=== PATIENT | male | born 1955 | race Caucasian/White ===

== ENCOUNTER 2024-07-24 16:36 | Inpatient (IN) | payer MEDICARE, BC ==
[~2024-07-24] VITALS: Ht 175.3 cm; Wt 82.3 kg
[2024-07-24 17:02] LABS: BASOPHILS % (AUTO) 0.2 % (0-1); EOSINOPHILS % (AUTO) 0.1 % (0-6); HEMATOCRIT 45.3 % (42.0-52.0); HEMOGLOBIN 15.8 g/dl (14.0-17.9); LYMPHOCYTES # (AUTO) 0.7 X10'3 (1.1-4.8); LYMPHOCYTES % (AUTO) 4.7 % (21-51); MEAN CORPUSCULAR HEMOGLOBIN 31.4 PG (27.0-31.0); MEAN CORPUSCULAR HGB CONC 34.9 g/dL (33.0-36.5); MEAN PLATELET VOLUME 7.9 FL (7.4-10.4); MONOCYTES # (AUTO) 1.1 X10'3 (0-0.9); NEUTROPHILS # (AUTO) 13.6 X10'3 (1.8-7.7); PLATELET COUNT 202 X10'3 (140-440); RED BLOOD COUNT 5.04 X10'6 (4.70-6.10); WHITE BLOOD COUNT 15.4 X10'3 (4.5-11.0)
[2024-07-24] MEDS: normal saline 1000ml 1,000 ML IV ONE ×2 (17:11→19:27)
[2024-07-24] MEDS: acetaminophen 325mg tablet PO ONE (17:41)
[2024-07-24] MEDS: nitroGLYCERIN 0.2mg/hour patch TD ONE (17:41)
[2024-07-24 18:16] LABS: APTT 29 SECONDS (22-32); PROTHROMBIN TIME 10.7 SECONDS (9.0-12.0)
[2024-07-24 18:21] LABS: ALANINE AMINOTRANSFERASE 50 U/L (12-78); ALBUMIN 4.1 G/DL (3.4-5.0); ALBUMIN/GLOBULIN RATIO 1.1 (1.1-1.5); ALKALINE PHOSPHATASE 81 IU/L (46-116); ANION GAP 8 (8-16); ASPARTATE AMINO TRANSFERASE 149 U/L (10-37); BILIRUBIN,TOTAL 1.5 MG/DL (0.1-1.0); BLOOD UREA NITROGEN 13 MG/DL (7-18); BUN/CREATININE RATIO 14.4 (10.0-20.0); CALCIUM 9.4 MG/DL (8.5-10.1); CHLORIDE 99 MMOL/L (99-107); GLUCOSE 98 MG/DL (70-104); POTASSIUM 3.8 MMOL/L (3.5-5.1); PRO BRAIN NATRIURETIC PEPTIDE 2396 PG/ML (0-125); SODIUM 136 MMOL/L (135-145); TOTAL CARBON DIOXIDE 29.4 MMOL/L (24-32); TOTAL PROTEIN 7.9 G/DL (6.4-8.2); eCRCL 76 ML/MIN; eGFR 83 ML/MIN
[2024-07-24] MEDS ORDERED: heparin 10,000 units/1 ML INJ IV ONE (18:35)
[2024-07-24] MEDS ORDERED: heparin 10,000 units/1 ML INJ IV PRN (18:50)
[2024-07-24] MEDS: heparin 10,000 units/1 ML INJ IV ONE (19:24)
[2024-07-24] MEDS: heparin 25,000 UNIT/250ml bag 250 ML IV PRN (19:25)
[2024-07-24] MEDS: normal saline 1000ML IV soln IVB ONE (19:26)
[2024-07-24] MEDS: MESSAGE TO NURSING IV ONE (19:27)
[2024-07-24] MEDS ORDERED: fentaNYL/PF 50MCG/1 ML 2ML syringe ONE (19:29)
[2024-07-24] MEDS ORDERED: iohexol 350MG/ML 100ml bottle IV ONE ×2 (19:29→20:31)
[2024-07-24] MEDS ORDERED: midazolam 1 mg/ML 2ml injection ONE ×2 (19:29→20:22)
[2024-07-24] MEDS ORDERED: LIDOcaine 1% (10mg/ml) 2ml vial ONE (19:29)
[2024-07-24] MEDS ORDERED: heparin 1,000unit/ml 10ml vial 10 ML ONE (19:29)
[2024-07-24] MEDS ORDERED: verapamil 2.5 mg/ml inj IV ONE (19:29)
[2024-07-24] MEDS ORDERED: potassium Cl 20 mEq SR tablet PO PRN ×2 (19:30)
[2024-07-24] MEDS ORDERED: morphine 2 MG/ML inj. syringe IV PRN (19:30)
[2024-07-24] MEDS ORDERED: magnesium sulf-water 2g/50mL 50 ML IV PRN (19:30)
[2024-07-24] MEDS ORDERED: magnesium hydroxide 30ml (MOM) UD suspension PO PRN (19:30)
[2024-07-24] MEDS ORDERED: HYDROmorphone inj. 0.5 MG/0.5 ML DISP.SYRIN IV PRN (19:30)
[2024-07-24] MEDS ORDERED: nitroGLYCERIN 500mcg/5mL D5W 5 ML IV ONE (19:30)
[2024-07-24] MEDS ORDERED: magnesium Cl slow-release 64mg tablet PO PRN (19:30)
[2024-07-24] MEDS ORDERED: potassium Cl 40MEQ/1/2NS 520ml 520 ML IV PRN (19:30)
[2024-07-24] MEDS ORDERED: bisacodyl 10mg suppository rectal RC PRN (19:30)
[2024-07-24] MEDS ORDERED: HYDROmorphone/PF 0.2 MG/ML SYRINGE IV PRN (19:30)
[2024-07-24] MEDS ORDERED: magnesium sulf-water 4G/100mL 100 ML IV PRN (19:30)
[2024-07-24] MEDS ORDERED: LIDOcaine 1% 30ml preserv. free vial ONE (19:55)
[2024-07-24] MEDS: K and/or MAG REPLACEMENT MC SCH (20:00)
[2024-07-24] MEDS: docusate sod 100mg capsule PO SCH (20:00)
[2024-07-24] MEDS ORDERED: nitroGLYCERIN 500mcg/5mL D5W 10 ML IV ONE (20:13)
[2024-07-24] MEDS ORDERED: aspirin 325mg tablet ONE (20:25)
[2024-07-24] MEDS ORDERED: ticagrelor 90mg tablet ONE (20:25)
[2024-07-24] MEDS ORDERED: atropine 0.1mg/ml 10ml syringe ONE (20:26)
[2024-07-24] MEDS ORDERED: tirofiban 12.5mg in NS 250mL 250 ML IV ONE (20:30)
[2024-07-24 22:00] VITALS: BP 98/55; PULSE 106; RESP 19; TEMP 97.6; O2SAT 93
[2024-07-24 22:15] VITALS: BP 92/52; PULSE 100; RESP 17; O2SAT 94
[2024-07-24] MEDS: HYDROmorphone inj. 0.5 MG/0.5 ML DISP.SYRIN IV PRN (22:25)
[2024-07-24 22:30] VITALS: BP 87/60; PULSE 99; RESP 19; O2SAT 92
[2024-07-24 22:45] VITALS: BP 93/61; PULSE 102; RESP 17; O2SAT 91
[2024-07-24 23:00] VITALS: BP 90/57; PULSE 89; RESP 14; O2SAT 92
[2024-07-24 23:30] VITALS: BP 88/59; PULSE 101; RESP 18; O2SAT 92
[2024-07-25] VITALS: BP 90/56; PULSE 96; RESP 22; O2SAT 94
[2024-07-25 01:00] VITALS: BP 87/59; PULSE 98; RESP 21; O2SAT 93
[2024-07-25] MEDS: morphine 2 MG/ML inj. syringe IV PRN (01:40)
[2024-07-25 02:00] VITALS: BP 84/53; PULSE 100; RESP 21; TEMP 97.4; O2SAT 95
[2024-07-25 05:42] VITALS: RESP 16; O2SAT 95
[2024-07-25] MEDS: ondansetron/PF 4mg/2ml inj IV PRN (05:53)
[2024-07-25 07:03] LABS: BASOPHILS % (AUTO) 0 % (0-1); EOSINOPHILS % (AUTO) 0 % (0-6); HEMATOCRIT 41.1 % (42.0-52.0); LYMPHOCYTES # (AUTO) 0.4 X10'3 (1.1-4.8); MEAN CORPUSCULAR HEMOGLOBIN 31.1 PG (27.0-31.0); MEAN CORPUSCULAR HGB CONC 34.1 g/dL (33.0-36.5); MEAN CORPUSCULAR VOLUME 91.2 FL (78-98); MEAN PLATELET VOLUME 8.5 FL (7.4-10.4); MONOCYTES % (AUTO) 7.9 % (2-12); NEUTROPHILS # (AUTO) 11.1 X10'3 (1.8-7.7); NEUTROPHILS % (AUTO) 89.1 % (42-75); PLATELET COUNT 163 X10'3 (140-440); RED CELL DISTRIBUTION WIDTH 13.3 % (11.5-14.5); WHITE BLOOD COUNT 12.5 X10'3 (4.5-11.0)
[2024-07-25 07:27] LABS: ALANINE AMINOTRANSFERASE 33 U/L (12-78); ALBUMIN/GLOBULIN RATIO 0.8 (1.1-1.5); ALKALINE PHOSPHATASE 66 IU/L (46-116); ANION GAP 12 (8-16); ASPARTATE AMINO TRANSFERASE 105 U/L (10-37); BILIRUBIN,TOTAL 0.9 MG/DL (0.1-1.0); BLOOD UREA NITROGEN 17 MG/DL (7-18); CALCIUM 8.8 MG/DL (8.5-10.1); CHLORIDE 103 MMOL/L (99-107); CHOL/HDL RATIO 1.7 (0.00-4.99); CHOLESTEROL 134 MG/DL (0-200); GLUCOSE 93 MG/DL (70-104); HDL CHOLESTEROL 80 MG/DL (35-60); LDL CHOLESTEROL 34 MG/DL (50-100); MAGNESIUM 1.9 MG/DL (1.5-2.4); POTASSIUM 3.8 MMOL/L (3.5-5.1); SODIUM 138 MMOL/L (135-145); TOTAL CARBON DIOXIDE 23.5 MMOL/L (24-32); TOTAL PROTEIN 6.6 G/DL (6.4-8.2); TRIGLYCERIDES 86 MG/DL (20-135); eCRCL 69 ML/MIN; eGFR 74 ML/MIN
[2024-07-25 08:00] VITALS: RESP 12; O2SAT 94
[2024-07-25] MEDS ORDERED: ticagrelor 90mg tablet PO SCH (08:00)
[2024-07-25] MEDS: aspirin 81mg, enteric-coated 1 TAB TABLET.DR PO SCH (09:21)
[2024-07-25] MEDS: metoprolol tartrate 25mg tablet PO SCH (09:22)
[2024-07-25] MEDS: clopidogrel 300mg tablet PO ONE (09:22)
[2024-07-25] MEDS: apixaban 5mg tablet PO SCH (09:22)
[2024-07-25] MEDS: FLU VACC TS2024-25(6MOS UP)/PF 45 MCG/0.5 ML SYRINGE IMVAC ONE (10:00)
[2024-07-25] MEDS: acetaminophen 325mg tablet PO PRN (14:33)
[2024-07-25] MEDS: mag hydrox/Alum hydrox/simeth 30ml oral suspension PO PRN (14:40)
[2024-07-25] MEDS ORDERED: loperamide 2mg capsule PO PRN (14:40)
[2024-07-25 20:00] VITALS: RESP 15; O2SAT 95
[2024-07-25] MEDS: atorvastatin 20mg tablet PO SCH (20:35)
[2024-07-25] MEDS: Melatonin 3mg tablet PO ONE (20:53)
[2024-07-26 06:00] VITALS: BP 109/65; PULSE 53; RESP 18; TEMP 98.3; O2SAT 96
[2024-07-26 07:12] LABS: BASOPHILS % (AUTO) 0.3 % (0-1); EOSINOPHILS # (AUTO) 0.1 X10'3 (0-0.9); EOSINOPHILS % (AUTO) 1.1 % (0-6); HEMATOCRIT 36.7 % (42.0-52.0); HEMOGLOBIN 12.9 g/dl (14.0-17.9); LYMPHOCYTES # (AUTO) 0.6 X10'3 (1.1-4.8); LYMPHOCYTES % (AUTO) 6.8 % (21-51); MEAN CORPUSCULAR HEMOGLOBIN 31.7 PG (27.0-31.0); MEAN CORPUSCULAR HGB CONC 35.1 g/dL (33.0-36.5); MEAN CORPUSCULAR VOLUME 90.1 FL (78-98); MEAN PLATELET VOLUME 8.9 FL (7.4-10.4); MONOCYTES # (AUTO) 0.7 X10'3 (0-0.9); MONOCYTES % (AUTO) 7.7 % (2-12); NEUTROPHILS # (AUTO) 7.1 X10'3 (1.8-7.7); NEUTROPHILS % (AUTO) 84.1 % (42-75); PLATELET COUNT 157 X10'3 (140-440); RED BLOOD COUNT 4.07 X10'6 (4.70-6.10); RED CELL DISTRIBUTION WIDTH 12.8 % (11.5-14.5); WHITE BLOOD COUNT 8.4 X10'3 (4.5-11.0)
[2024-07-26 07:13] LABS: ALANINE AMINOTRANSFERASE 36 U/L (12-78); ALBUMIN 2.7 G/DL (3.4-5.0); ALBUMIN/GLOBULIN RATIO 0.7 (1.1-1.5); ALKALINE PHOSPHATASE 74 IU/L (46-116); ANION GAP 9 (8-16); ASPARTATE AMINO TRANSFERASE 66 U/L (10-37); BILIRUBIN,TOTAL 0.6 MG/DL (0.1-1.0); BLOOD UREA NITROGEN 25 MG/DL (7-18); BUN/CREATININE RATIO 26.6 (10.0-20.0); CALCIUM 8.7 MG/DL (8.5-10.1); CHLORIDE 103 MMOL/L (99-107); CREATININE 0.94 MG/DL (0.60-1.10); GLUCOSE 102 MG/DL (70-104); SODIUM 138 MMOL/L (135-145); TOTAL CARBON DIOXIDE 26.4 MMOL/L (24-32); TOTAL PROTEIN 6.4 G/DL (6.4-8.2); eCRCL 73 ML/MIN; eGFR 79 ML/MIN
[2024-07-26] MEDS: clopidogrel 75mg tablet PO SCH (07:57)
[2024-07-26 08:00] VITALS: PULSE 59; RESP 18; O2SAT 96
[2024-07-26] MEDS ORDERED: ASPI-1071 PO ×2 (08:34→12:42)
[2024-07-26] MEDS ORDERED: LOP25T PO ×2 (08:34→12:42)
[2024-07-26] MEDS ORDERED: APIX5TAB3 PO ×2 (08:34→12:42)
[2024-07-26] MEDS ORDERED: CLOP75TA34 PO ×2 (08:34→12:42)
[2024-07-26] MEDS ORDERED: ATOR40TA72 PO (08:34)
[2024-07-26] MEDS ORDERED: ATOR20TA66 PO (12:42)
[2024-08-01] MEDS ORDERED: ONDA-245 PO (11:51)
[2024-08-03] MEDS ORDERED: PANT40TA54 PO (11:01)
[2024-08-03] MEDS ORDERED: MAGN500C4 PO (11:01)
[2024-08-03] MEDS ORDERED: LOP25T PO (11:01)
[2024-08-03] MEDS ORDERED: TICA90TA PO (11:01)
[2024-08-03] MEDS ORDERED: ACET-1059 PO (12:38)
[2024-08-03] MEDS ORDERED: ACET-3068 PO (12:43)
== END 2024-07-26 15:36 | disposition home or self-care (01) | DRG 321 ==
LOC: ER 16:37 → ED HOLD 19:34 → UNDOADMIN 19:59 → PCU 3S 21:31
PROVIDERS: ADMIT Internal Medicine Critical Care Medicine; ATTEND Internal Medicine
PROC: 027136Z Dilation of Coronary Artery, Two Arteries with Three Drug-eluting Intraluminal Devices, Percutaneous Approach (ICD-10-PCS; principal; 2024-07-24)
PROC: B41F1ZZ Fluoroscopy of Right Lower Extremity Arteries using Low Osmolar Contrast (ICD-10-PCS; 2024-07-24)
PROC: B2111ZZ Fluoroscopy of Multiple Coronary Arteries using Low Osmolar Contrast (ICD-10-PCS; 2024-07-24)
DX: I21.19 ST elevation (STEMI) myocardial infarction involving other coronary artery of inferior wall (principal); I50.31 Acute diastolic (congestive) heart failure; I48.0 Paroxysmal atrial fibrillation; I25.10 Atherosclerotic heart disease of native coronary artery without angina pectoris; Z79.82 Long term (current) use of aspirin; Z85.46 Personal history of malignant neoplasm of prostate; Z92.3 Personal history of irradiation
CPT/HCPCS: 93306; 93454; 96361; 96365; 96375; 99291; C9601; C9606; 36415; 71045; 80053; 80061; 83735; 83880; 84153; 84484; 85025; 85347; 85610; 85730; 86885; 86900; 86901; 86920; 93005; 99152; 99153; A4615; A6258; C1725; C1751; C1760; C1769; C1874; C1894; C9600; G0378; J0461; J1171; J1644; J2003; J2250; J2270; J2405; J3010; J3246; J3490; J7030; Q9967

== ENCOUNTER 2024-08-09 01:35 | Inpatient (IN) | payer MEDICARE, BC ==
[~2024-08-09] VITALS: Ht 182.9 cm; Wt 81.8 kg
[~2024-08-09 01:35] MED LIST: ACET-3068 PO; APIX5TAB3 PO; ASPI-1071 PO; ATOR20TA66 PO; LOP25T PO; MAGN500C4 PO; PANT40TA54 PO; TICA90TA PO
[2024-08-09] MEDS: normal saline 1000ML IV soln IVB ONE (01:54)
[2024-08-09 01:59] LABS: BASOPHILS # (AUTO) 0.1 X10'3 (0-0.2); BASOPHILS % (AUTO) 0.7 % (0-1); EOSINOPHILS % (AUTO) 0.3 % (0-6); HEMATOCRIT 36.2 % (42.0-52.0); HEMOGLOBIN 12.9 g/dl (14.0-17.9); LYMPHOCYTES # (AUTO) 0.9 X10'3 (1.1-4.8); LYMPHOCYTES % (AUTO) 5.1 % (21-51); MEAN CORPUSCULAR HEMOGLOBIN 31.3 PG (27.0-31.0); MEAN CORPUSCULAR HGB CONC 35.6 g/dL (33.0-36.5); MEAN CORPUSCULAR VOLUME 87.8 FL (78-98); MEAN PLATELET VOLUME 7.6 FL (7.4-10.4); MONOCYTES % (AUTO) 5.7 % (2-12); NEUTROPHILS # (AUTO) 15.4 X10'3 (1.8-7.7); NEUTROPHILS % (AUTO) 88.2 % (42-75); PLATELET COUNT 556 X10'3 (140-440); RED BLOOD COUNT 4.12 X10'6 (4.70-6.10); RED CELL DISTRIBUTION WIDTH 12.8 % (11.5-14.5); WHITE BLOOD COUNT 17.5 X10'3 (4.5-11.0)
[2024-08-09] MEDS: aspirin 325mg tablet PO ONE (02:03)
[2024-08-09] MEDS: normal saline 1000ml 1,000 ML IV ONE (02:09)
[2024-08-09 02:18] LABS: ALBUMIN 3.3 G/DL (3.4-5.0); ALBUMIN/GLOBULIN RATIO 0.7 (1.1-1.5); ALKALINE PHOSPHATASE 243 IU/L (46-116); ANION GAP 10 (8-16); BILIRUBIN,TOTAL 1.6 MG/DL (0.1-1.0); BLOOD UREA NITROGEN 33 MG/DL (7-18); BUN/CREATININE RATIO 23.9 (10.0-20.0); CALCIUM 9.2 MG/DL (8.5-10.1); CHLORIDE 94 MMOL/L (99-107); CREATININE 1.38 MG/DL (0.60-1.10); GLUCOSE 129 MG/DL (70-104); SODIUM 130 MMOL/L (135-145); TOTAL CARBON DIOXIDE 26.4 MMOL/L (24-32); TOTAL PROTEIN 8.1 G/DL (6.4-8.2); eCRCL 55 ML/MIN; eGFR 51 ML/MIN
[2024-08-09 02:20] LABS: PRO BRAIN NATRIURETIC PEPTIDE 16918 PG/ML (0-125)
[2024-08-09 02:29] LABS: ALANINE AMINOTRANSFERASE 1170 U/L (12-78); ASPARTATE AMINO TRANSFERASE 1105 U/L (10-37); POTASSIUM 5.9 MMOL/L (3.5-5.1)
[2024-08-09] MEDS: ondansetron/PF 4mg/2ml inj IV ONE (03:37)
[2024-08-09] MEDS: propofol 10mg/ml 20ml vial IV ONE (04:40)
[2024-08-09] MEDS: epiNEPHrine 5 MG in NS 250ml IV.SOLN IV ONE (04:49)
[2024-08-09] MEDS ORDERED: acetaminophen w/codeine (30MG) #3 tablet PO PRN (05:35)
[2024-08-09] MEDS ORDERED: ALPRAZolam 0.25mg tablet PO PRN (06:10)
[2024-08-09] MEDS: insulin regular, human 10 units/0.1 ml syringe IV ONE (06:35)
[2024-08-09] MEDS: dextrose 50%-water 50ml dispensing syringe IV ONE (06:35)
[2024-08-09 06:44] LABS: BILIRUBIN,URINE NEGATIVE (Neg); CLARITY,URINE CLEAR (Clear); COLOR,URINE YELLOW (Yellow); GLUCOSE, URINE NEGATIVE (Neg); KETONES,URINE NEGATIVE (Neg); LEUKOCYTE ESTERASE ,URINE NEGATIVE (Neg); NITRITES, URINE NEGATIVE (Neg); OCCULT BLOOD,URINE SMALL (Neg); PH,URINE 5.5 (4.8-8.0); PROTEIN,URINE NEGATIVE (Neg); UROBILINOGEN,URINE 0.2 E.U/dL (0.2-1.0)
[2024-08-09 06:49] LABS: UA COLLECTION TYPE CLN CATCH MIDSTREAM
[2024-08-09 06:51] LABS: BACTERIA,URINE NONE SEEN /HPF (Neg); MUCUS STRANDS NONE SEEN /LPF (Neg); RBC,URINE NONE SEEN /HPF (0-2); SQUAMOUS EPITHELIAL CELL,UR FEW /LPF (FEW); WBC,URINE NONE SEEN /HPF (0-4)
[2024-08-09 07:01] LABS: INR 1.4 INR; PROTHROMBIN TIME 14.3 SECONDS (9.0-12.0)
[2024-08-09] MEDS: SODIUM ZIRCONIUM CYCLOSILICATE 10 GM POWD.PACK PO ONE (07:19)
[2024-08-09] MEDS: pantoprazole 40mg Tablet.DR PO SCH ×2 (07:30→09:13)
[2024-08-09] MEDS: apixaban 5mg tablet PO SCH (09:13)
[2024-08-09] MEDS: ticagrelor 90mg tablet PO SCH (09:13)
[2024-08-09] MEDS: atorvastatin 20mg tablet PO SCH (09:13)
[2024-08-09] MEDS: aspirin 81mg tab.chew PO SCH (09:13)
[2024-08-09 17:00] VITALS: BP 118/75; PULSE 63; RESP 17; TEMP 97.8; O2SAT 99
[2024-08-09 18:00] VITALS: BP 130/76; PULSE 60; RESP 17; TEMP 97.3; O2SAT 100
[2024-08-09 19:40] VITALS: RESP 17; O2SAT 100
[2024-08-09 20:04] LABS: ALBUMIN 2.6 G/DL (3.4-5.0); BLOOD UREA NITROGEN 26 MG/DL (7-18); CALCIUM 8.5 MG/DL (8.5-10.1); CREATININE 1.13 MG/DL (0.60-1.10); GLUCOSE 73 MG/DL (70-104); POTASSIUM 4.6 MMOL/L (3.5-5.1); SODIUM 142 MMOL/L (135-145); eCRCL 67 ML/MIN; eGFR 64 ML/MIN
[2024-08-09 20:05] LABS: ANION GAP 8 (8-16); CHLORIDE 106 MMOL/L (99-107)
[2024-08-09] MEDS: magnesium oxide 400mg tablet PO SCH (20:24)
[2024-08-09] MEDS: metoprolol tartrate 25mg tablet PO SCH (20:25)
[2024-08-09] MEDS: ketorolac trometh 15mg/ml vial 15 MG/ML ML IV PRN (21:17)
[2024-08-09 22:00] VITALS: BP 90/49; PULSE 46; RESP 15; TEMP 97.3; O2SAT 100
[2024-08-10 02:00] VITALS: BP 90/58; PULSE 51; RESP 16; TEMP 97.9; O2SAT 97
[2024-08-10 06:00] VITALS: BP 100/65; PULSE 54; RESP 22; TEMP 97.5; O2SAT 97
[2024-08-10 08:00] VITALS: RESP 22; O2SAT 97
[2024-08-10] MEDS ORDERED: atropine 0.1mg/ml 10ml syringe ONE (08:00)
[2024-08-10] MEDS ORDERED: potassium Cl 40MEQ/1/2NS 520ml 520 ML IV PRN (08:45)
[2024-08-10] MEDS ORDERED: magnesium sulf-water 2g/50mL 50 ML IV PRN (08:45)
[2024-08-10] MEDS ORDERED: magnesium sulf-water 4G/100mL 100 ML IV PRN (08:45)
[2024-08-10] MEDS ORDERED: potassium Cl 20 mEq SR tablet PO PRN ×2 (08:45)
[2024-08-10 09:00] VITALS: BP 109/72; PULSE 65
[2024-08-10 09:41] LABS: BASOPHILS # (AUTO) 0.1 X10'3 (0-0.2); BASOPHILS % (AUTO) 1.1 % (0-1); EOSINOPHILS # (AUTO) 0.1 X10'3 (0-0.9); EOSINOPHILS % (AUTO) 0.8 % (0-6); HEMATOCRIT 31.7 % (42.0-52.0); LYMPHOCYTES # (AUTO) 0.3 X10'3 (1.1-4.8); LYMPHOCYTES % (AUTO) 3.6 % (21-51); MEAN CORPUSCULAR HEMOGLOBIN 30.5 PG (27.0-31.0); MEAN CORPUSCULAR HGB CONC 34.6 g/dL (33.0-36.5); MEAN CORPUSCULAR VOLUME 88.1 FL (78-98); MEAN PLATELET VOLUME 6.8 FL (7.4-10.4); MONOCYTES # (AUTO) 0.4 X10'3 (0-0.9); MONOCYTES % (AUTO) 4.6 % (2-12); NEUTROPHILS % (AUTO) 89.9 % (42-75); PLATELET COUNT 333 X10'3 (140-440); RED CELL DISTRIBUTION WIDTH 12.9 % (11.5-14.5); WHITE BLOOD COUNT 8.8 X10'3 (4.5-11.0)
[2024-08-10 09:56] LABS: ALANINE AMINOTRANSFERASE 738 U/L (12-78); ALBUMIN 2.4 G/DL (3.4-5.0); ALBUMIN/GLOBULIN RATIO 0.6 (1.1-1.5); ALKALINE PHOSPHATASE 166 IU/L (46-116); ASPARTATE AMINO TRANSFERASE 269 U/L (10-37); BILIRUBIN,TOTAL 0.7 MG/DL (0.1-1.0); BLOOD UREA NITROGEN 28 MG/DL (7-18); CALCIUM 8.3 MG/DL (8.5-10.1); CREATININE 1.22 MG/DL (0.60-1.10); GLUCOSE 135 MG/DL (70-104); POTASSIUM 4.3 MMOL/L (3.5-5.1); SODIUM 139 MMOL/L (135-145); TOTAL CARBON DIOXIDE 28.3 MMOL/L (24-32); TOTAL PROTEIN 6.1 G/DL (6.4-8.2); eCRCL 62 ML/MIN; eGFR 59 ML/MIN
[2024-08-10 10:03] LABS: ANION GAP 5 (8-16); CHLORIDE 106 MMOL/L (99-107)
[2024-08-10 11:00] VITALS: BP 106/61; PULSE 54; RESP 16; TEMP 97.5; O2SAT 98
[2024-08-10] MEDS ORDERED: LIDOcaine/PRILOcaine 5gm cream TP PRN (12:10)
[2024-08-10 15:00] VITALS: BP 107/75; PULSE 62; RESP 16; TEMP 97.7; O2SAT 99
[2024-08-10] MEDS: metoclopramide 5 mg/ml inj IV PRN (19:35)
[2024-08-10] MEDS: K and/or MAG REPLACEMENT MC SCH (20:00)
[2024-08-10] MEDS: temazepam 15mg capsule PO PRN (22:32)
[2024-08-10] MEDS: calcium carbonate 500mg chew tablet PO ONE (22:32)
[2024-08-11 02:00] VITALS: BP 133/82; PULSE 64; RESP 21; TEMP 97.7; O2SAT 97
[2024-08-11 06:00] VITALS: BP 110/72; PULSE 68; RESP 16; TEMP 98; O2SAT 94
[2024-08-11 07:36] LABS: BASOPHILS # (AUTO) 0.1 X10'3 (0-0.2); BASOPHILS % (AUTO) 0.6 % (0-1); EOSINOPHILS # (AUTO) 0.1 X10'3 (0-0.9); EOSINOPHILS % (AUTO) 0.4 % (0-6); HEMATOCRIT 31.4 % (42.0-52.0); HEMOGLOBIN 10.6 g/dl (14.0-17.9); LYMPHOCYTES # (AUTO) 0.5 X10'3 (1.1-4.8); LYMPHOCYTES % (AUTO) 4.5 % (21-51); MEAN CORPUSCULAR HEMOGLOBIN 29.9 PG (27.0-31.0); MEAN CORPUSCULAR HGB CONC 33.9 g/dL (33.0-36.5); MEAN CORPUSCULAR VOLUME 88.2 FL (78-98); MEAN PLATELET VOLUME 7.3 FL (7.4-10.4); MONOCYTES # (AUTO) 0.7 X10'3 (0-0.9); NEUTROPHILS # (AUTO) 10.3 X10'3 (1.8-7.7); NEUTROPHILS % (AUTO) 88.5 % (42-75); PLATELET COUNT 334 X10'3 (140-440); RED BLOOD COUNT 3.56 X10'6 (4.70-6.10); RED CELL DISTRIBUTION WIDTH 12.5 % (11.5-14.5); WHITE BLOOD COUNT 11.7 X10'3 (4.5-11.0)
[2024-08-11 07:54] LABS: ALANINE AMINOTRANSFERASE 527 U/L (12-78); ALBUMIN 2.4 G/DL (3.4-5.0); ALBUMIN/GLOBULIN RATIO 0.6 (1.1-1.5); ALKALINE PHOSPHATASE 145 IU/L (46-116); ANION GAP 8 (8-16); ASPARTATE AMINO TRANSFERASE 136 U/L (10-37); BILIRUBIN,TOTAL 0.8 MG/DL (0.1-1.0); BLOOD UREA NITROGEN 22 MG/DL (7-18); CALCIUM 8.3 MG/DL (8.5-10.1); CHLORIDE 105 MMOL/L (99-107); CREATININE 0.88 MG/DL (0.60-1.10); GLUCOSE 105 MG/DL (70-104); POTASSIUM 4.1 MMOL/L (3.5-5.1); SODIUM 138 MMOL/L (135-145); TOTAL CARBON DIOXIDE 24.8 MMOL/L (24-32); TOTAL PROTEIN 6.2 G/DL (6.4-8.2); eCRCL 86 ML/MIN; eGFR 86 ML/MIN
[2024-08-11 08:00] VITALS: RESP 16; O2SAT 94
[2024-08-11 11:00] VITALS: BP 109/72; PULSE 65; RESP 13; TEMP 97.9; O2SAT 96
[2024-08-11] MEDS ORDERED: TEMA15CA5 PO (12:05)
== END 2024-08-11 14:35 | disposition home or self-care (01) | DRG 280 ==
LOC: ER 01:36 → ED HOLD 06:01 → PCU 3S 16:42
PROVIDERS: ADMIT Internal Medicine Critical Care Medicine; ATTEND Internal Medicine Critical Care Medicine
PROC: 5A2204Z Restoration of Cardiac Rhythm, Single (ICD-10-PCS; principal; 2024-08-09)
DX: T82.855A Stenosis of coronary artery stent, initial encounter (principal); I49.01 Ventricular fibrillation; I21.A1 Myocardial infarction type 2; I50.21 Acute systolic (congestive) heart failure; R57.0 Cardiogenic shock; R57.1 Hypovolemic shock; N17.9 Acute kidney failure, unspecified; I48.0 Paroxysmal atrial fibrillation; I95.9 Hypotension, unspecified; E87.5 Hyperkalemia; R31.9 Hematuria, unspecified; R07.81 Pleurodynia; R74.01 Elevation of levels of liver transaminase levels; I25.10 Atherosclerotic heart disease of native coronary artery without angina pectoris; Y83.8 Other surgical procedures as the cause of abnormal reaction of the patient, or of later complication, without mention of misadventure at the time of the procedure; F41.9 Anxiety disorder, unspecified; Z79.899 Other long term (current) drug therapy; Z79.82 Long term (current) use of aspirin; Z79.01 Long term (current) use of anticoagulants; Y92.89 Other specified places as the place of occurrence of the external cause; Z79.02 Long term (current) use of antithrombotics/antiplatelets; Z85.46 Personal history of malignant neoplasm of prostate; Z92.3 Personal history of irradiation; Z98.61 Coronary angioplasty status
CPT/HCPCS: 36415; 71045; 71110; 71250; 80048; 80053; 81001; 83735; 83880; 84145; 84484; 85025; 85610; 92960; 93005; 93308; 94760; 99291; 99292; A4620; G0378; J0171; J0461; J1815; J1885; J2405; J2704; J2765; J3490; J7030; J7050

== ENCOUNTER 2024-09-22 11:18 | Outpatient (CLI) | payer MEDICARE, BC ==
[~2024-09-22 11:18] MED LIST changes: -ACET-3068 PO; +TEMA15CA5 PO
--- NOTE | 2024-09-22 12:51 | RADIOLOGY REPORT ---
Exam: US US NON VASCULAR Date: 09/22/2024 11:45 AM Clinical History: LOCALIZED SWELLING, MASS AND LUMP, LEFT UPPER LIMB Comparison: None Technique: Targeted sonographic evaluation of the soft tissues of the left elbow was obtained utilizing grayscal e and color Doppler imaging. Findings/Impression: Striated hypoechoic area in the left elbow measuring 5.8 x 4.9 x 2.7 cm resembles a muscle in region of palpable abnormality. However, given patient reports change in size, recommend further evaluation with MRI.
== END 2024-09-22 23:59 | disposition home or self-care (01) ==
LOC: RAD 11:18
PROVIDERS: ATTEND Family Medicine
DX: R22.32 Localized swelling, mass and lump, left upper limb (principal)
CPT/HCPCS: 76881

== ENCOUNTER 2025-05-15 23:03 | Inpatient (IN) | payer MEDICARE, BC ==
[~2025-05-15] VITALS: Ht 180.3 cm; Wt 93.3 kg
--- NOTE | 2025-05-15 23:17 | Physician Documentation ---
History of Present Illness ~ Chief Complaint: See Chief Complaint Stated Complaint: LIGHT HEADED Time Seen by MD: 23:13 OK to notify your PCP?: Yes Primary Medical Doctor: Dr. Dex Ball Source: patient Mode of Arrival: EMS Exam Limitations: no limitations HPI 69 year old male brought to the ED by EMS with complaints of lightheadedness at rest. Patient in SVT, rate of 185. He denies chest pain. Symptoms came on while he was sitting and watching TV he states that he got a head goode and became clammy. Notes that he had Watchman placed on 03/14 as well as ablation on same day. Patient denies any other associated symptoms. Patient denies any other alleviating or exacerbating factors at this time. Medication Reconciliation Allergies: Coded Allergies: No Known Allergies (Unverified , 07/24/24) Scheduled Apixaban (Eliquis), 5 MG PO BID Atorvastatin Calcium (Atorvastatin Calcium), 1 TAB PO HS, (Reported) Magnesium Oxide (Magnesium), 500 MG PO DAILY Pantoprazole Sodium (Pantoprazole Sodium), 40 MG PO BKF Ticagrelor (Brilinta), 1 TAB PO BID, (Reported) Discontinued Medications Aspirin (Ecotrin*), 1 TAB PO DAILY Discontinued Reason: patient no longer taking Atorvastatin Calcium (Atorvastatin Calcium), 80 MG PO DAILY Discontinued Reason: Other Metoprolol Tartrate* (Lopressor tablet*), 12.5 MG PO BID Discontinued Reason: patient no longer taking Pantoprazole Sodium (Pantoprazole Sodium), 1 TAB PO DAILY, (Reported) Discontinued Reason: Other Temazepam (Restoril), 15 MG PO HS PRN for sleep Discontinued Reason: patient no longer taking Ticagrelor (Brilinta), 90 MG PO BID Discontinued Reason: Other Past Medical History Past Medical History: Coronary Artery Disease, Myocardial Infarction Past Surgical History: cancer surgery, orthopedic surgeries Patient History: FH: myocardial infarction FATHER FH: stroke maternal Grandmother Alcohol Use: Occasionally Drug Use: none Review of Systems All Other Systems at this time: Reviewed and Negative ROS As stated above in the HPI, otherwise all systems are reviewed and negative. Physical Exam Vital Signs: RN Vital Signs have been reviewed: Yes, Heart Rate: 183, Respiratory Rate: 14, BP: 120/92, Pulse Oximetry: 96, Weight: 93.640 Pulse Oximetry Reflects: adequate oxygenation Physical Exam General: Patient is awake, alert, oriented x4. Diaphoretic and anxious. Head: Normocephalic and atraumatic. Eyes: Conjunctival normal. EOMI. PERRL. ENT: Mucous membranes moist. Neck: Supple, trachea is midline. Chest: Clear to auscultation bilaterally without rales, rhonchi, or wheezes. There is no accessory muscle use or retractions. Cardiac: Tachycardic, without murmurs, gallops, or rubs. Abd: Soft, nondistended, nontender, with normoactive bowel sounds. No guarding, rebound, or rigidity. Extremities: Normal strength. Normal range of motion. No deformities or edema. Back: No midline spinal or CVA tenderness. Skin: Warm and dry with no significant rash appreciated. Neuro: Cranial nerves II-XII grossly intact. No focal neuro deficits. Patient ambulating without difficulty. Progress Progress Note 0100: Paging hospitalist. 0117: Resident hospitalist agrees to evaluate patient for admission. Results/Orders Results/Orders Orders - MIKE MAIER MD Chest,Single View (05/15/25 23:40) Monitor (05/15/25 23:06) Saline Lock (05/15/25 23:06) Oxygen (05/15/25 23:06) Electrocardiogram (05/15/25 23:06) Hs Troponin I W Calculations (05/16/25 02:06) Page Hospitalist (05/16/25 00:59) Fill Out Med Reconciliation (05/16/25 00:59) Completed Orders - MIKE MAIER MD Chest,Single View (05/15/25 23:40) Cbc/Diff (05/15/25 23:06) BMP (05/15/25 23:06) PBNP (05/15/25 23:06) Hs Troponin I W Calculations (05/15/25 23:06) Hs Troponin I W Calculations (05/16/25 01:06) Diltiazem Iv (Cardizem Iv 5mg/Ml Inj.) (05/15/25 23:15) Normal Saline 1000ml (0.9% Sodium Chlori (05/15/25 23:15) Adenosine Inj. (Adenocard Inj.) (05/15/25 23:15) Metoprolol Tartrate Inj (Lopressor Iv) (05/15/25 23:30) Nicardipine-Ns 40mg/200ml Ivpb (Cardene- (05/15/25 23:40) Ketamine 50mg/Ml 10ml Inj (Ketamine 50mg (05/15/25 23:55) Midazolam 1 Mg/Ml 2ml Inj. (Versed 1 Mg/ (05/16/25 00:45) Medications Received in ER Medications (Trade) Dose Ordered Sig/Umer Route PRN Reason Start Time Stop Time Status Last Admin Dose Admin (Cardizem IV 5mg/ ml inj.) 15 mg ONCE ONCE IV 05/15/25 23:15 05/15/25 23:16 DC 05/15/25 23:27 15 MG Sodium Chloride 1,000 ml @ 1,000 mls/hr ONCE ONCE IV 05/15/25 23:15 05/16/25 00:14 DC 05/15/25 23:27 1,000 MLS/HR (Adenocard inj.) 12 mg ONCE ONCE IV 05/15/25 23:15 05/15/25 23:20 DC 05/15/25 23:27 12 MG (Lopressor IV) 5 mg ONCE ONCE IV 05/15/25 23:30 05/15/25 23:31 DC 05/15/25 23:38 5 MG (ketamine 50mg/ ml 10ml inj) 100 mg ONCE ONCE IV 05/15/25 23:55 05/15/25 23:56 DC 05/16/25 00:06 100 MG (VERSED 1 MG/ML 2 ML inj.) 1 mg ONCE ONCE IV 05/16/25 00:45 05/16/25 00:46 DC 05/16/25 00:49 1 MG Vital Signs 05/15/25 05/15/25 05/15/25 05/15/25 23:06 23:14 23:27 23:38 Pulse 185 183 184 185 Resp 11 14 B/P (MAP) 129/96 120/92 (101) 121/97 Pulse Ox 95 96 05/16/25 05/16/25 05/16/25 05/16/25 00:00 00:05 00:10 00:15 Pulse 183 181 184 60 Resp 11 8 8 5 B/P (MAP) 74/47 81/55 81/53 100/70 Pulse Ox 100 100 100 100 O2 Delivery Nasal Cannula Nasal Cannula Nasal Cannula Nasal Cannula O2 Flow Rate 3.0 3.0 3.0 3.0 05/16/25 05/16/25 05/16/25 05/16/25 00:18 00:20 00:33 00:48 Pulse 64 60 62 60 Resp 12 13 7 11 B/P (MAP) 128/90 (103) 113/89 124/78 (93) 111/74 (86) Pulse Ox 99 99 99 98 O2 Delivery Nasal Cannula Nasal Cannula Nasal Cannula Nasal Cannula O2 Flow Rate 3.0 3.0 3.0 2.0 05/16/25 00:49 Resp 11 Laboratory Tests Test 05/15/25 23:11 05/15/25 23:14 05/16/25 01:11 Sodium Level 144 Potassium Level 3.6 Chloride Level 106 Carbon Dioxide Level 29.1 Anion Gap 9 Blood Urea Nitrogen 21 H Creatinine 1.17 H Estimated GFR/1.73 m2 61 BUN/Creatinine Ratio 17.9 Glucose Level 115 H Calcium Level 9.6 Troponin I High Sensitivity 30 703 *H Pro-B-Type Natriuretic Peptide 462 H Albumin 4.2 Chemistry Comments White Blood Count 10.3 Red Blood Count 5.06 Hemoglobin 14.6 Hematocrit 42.8 Mean Corpuscular Volume 84.7 Mean Corpuscular Hemoglobin 28.9 Mean Corpuscular Hemoglobin Concent 34.1 Red Cell Distribution Width 13.9 Platelet Count 226 Mean Platelet Volume 7.8 Neutrophils (%) (Auto) 68.0 Lymphocytes (%) (Auto) 22.2 Monocytes (%) (Auto) 6.3 Eosinophils (%) (Auto) 2.7 Basophils (%) (Auto) 0.8 Neutrophils # (Auto) 7.0 Lymphocytes # (Auto) 2.3 Monocytes # (Auto) 0.6 Eosinophils # (Auto) 0.3 Basophils # (Auto) 0.1 CBC Comment Troponin I High Sens Percent Delta 2243 Troponin I Hi Sens Absolute Change 673 EKG/XRAY/CT/US/VASC/MRI EKG #1: Intepreting Monitor?: No Additional Comment 2306: 183 wide complex tachycardia, indeterminate axis, nonspecific ST. EKG #2: Intepreting Monitor?: No Additional Comment 0010: 64 atrial paced rhythm, normal axis, noted ischemic changes in the anterior leads. Chest X-Ray : Interpreted By: radiologist Views: 1 VIEW Additional Comments EXAM: DI CHEST,SINGLE VIEW TECHNIQUE: Single frontal chest radiograph CLINICAL HISTORY: CP COMPARISON: CT CT CHEST on DOS: 08/09/24, DI CHEST,SINGLE VIEW on DOS: 08/09/24, DI CHEST,SINGLE VIEW on DOS: 08/01/24, DI CHEST,SINGLE VIEW on DOS: 07/30/24, DI CHEST,SINGLE VIEW on DOS: 07/24/24 FINDINGS/IMPRESSION: Mild prominence of the interstitial markings. Mild enlargement of the cardiomediastinal silhouette. No pleural effusion or pneumothorax. No acute osseous abnormality. Left-sided dual-chamber pacemaker. A pacing device overlies the left thorax, partially obscuring evaluation. Electronically Signed by:DEVONTE CHENG MD Date & Time: 05/15/252352 Dictated by: DEVONTE CHENG MD Dictation date and time: 05/15/252352 Primary Care Provider: NO PRIMARY CARE PROVIDER cc: MIKE MAIER MD ~ Medical Decision Making Additional information obtaine: old records Findings Patient presents to the emergency room with wide complex tachycardia concerning for possible V-tach versus SVT with left bundle-branch block. Adenosine administered with a little to no effect. Xavi blockers attempted and patient became hypotensive therefore the need to emergently cardiovert. Patient was successfully cardioverted with 150 joules synchronized in his now in sinus rhythm. Elevated troponins although patient denied any chest pain during his ordeal and this could be from right heart strain versus cardioversion. With all this together including patient's age and he had not feel he was safe for discharge. That has already on Eliquis and I have elected not to heparinize him. Differential Dx:Considerations: Include: angina / GA, atrial dysrhythmia, atrial fibrillation, atrial flutter, MAT, PACs, PSVT, sinus tachycardia, WPW, 1st degree AV block, 2nd degree AVB-type 1, 2nd degree AVB-type 2, 3rd degree AV block, PVCs, torsades de pointes, ventricular fibrillation, ventricular tachycardia, other Differential Dx:Considerations: Include anxiety/panic attack, Include digoxin toxicity, Include electrolyte disorder, Include heart failure, Include hy perthyroidism, Include hyperventilation, Include hypoxia, Include pacemaker malfunction, Include pulmonary embolus, Include renal failure, Include other Departure Time of Disposition: 01:00 Disposition: 09 ADMITTED INPATIENT Admitted to Inpatient Unit: yes, to hospitalist Impression: Primary Impression: Wide-complex tachycardia Referrals: NO PRIMARY CARE PROVIDER (PCP) Critical Care Note Total Time (mins): 30 Critical Care Note The very real possibility of a deterioration of this patient's condition required the highest level of my preparedness for sudden, emergent intervention. I provided critical care services, which included medication orders, frequent reevaluations of the patient's condition and response to treatment, ordering and reviewing test results, and discussing the case with various consultants. Excludes time spent performing separately billable procedures. The critical care time associated with the care of the patient was 30 minutes not counting procedures Signature Scribe Signature: Scribed for Mike Maier MD by Frankie Mello . 05/16/25 00:16 Attestation: The note accurately reflects work and decisions made by me.Mike Maier MD 05/16/25 02:31 MIKE MAIER MD May 15, 2025 23:17 FRANKIE MOTLEY May 16, 2025 00:16
[2025-05-15 23:24] LABS: MEAN PLATELET VOLUME 7.8 FL (7.4-10.4); RED CELL DISTRIBUTION WIDTH 13.9 % (11.5-14.5)
[2025-05-15] MEDS: adenosine 3mg/ml 2ml vial IV ONE (23:27)
[2025-05-15] MEDS: diltiazem 5mg/ml 5ml inj. IV ONE (23:27)
[2025-05-15] MEDS: normal saline 1000ml 1,000 ML IV ONE (23:27)
[2025-05-15] MEDS: metoprolol tartrate 1mg/ml inj IV ONE (23:38)
[2025-05-15] MEDS ORDERED: niCARDipine-NS 40mg/200ml IVPB 200 ML IV SCH (23:40)
[2025-05-15 23:45] LABS: CREATININE 1.17 MG/DL (0.60-1.10); PRO BRAIN NATRIURETIC PEPTIDE 462 PG/ML (0-125); TOTAL CARBON DIOXIDE 29.1 MMOL/L (24-32); eCRCL 64 ML/MIN; eGFR 61 ML/MIN
--- NOTE | 2025-05-15 23:55 | RADIOLOGY REPORT ---
EXAM: DI CHEST,SINGLE VIEW TECHNIQUE: Single frontal chest radiograph CLINICAL HISTORY: CP COMPARISON: CT CT CHEST on DOS: 08/09/24, DI CHEST,SINGLE VIEW on DOS: 08/09/24, DI CHEST,SINGLE VIEW on DOS: 08/01/24, DI CHEST,SINGLE VIEW on DOS: 07/30/24, DI CHEST,SINGLE VIEW on DOS: 07/24/24 FINDINGS/IMPRESSION: Mild prominence of the interstitial markings. Mild enlargement of the cardiomediastinal silhouette. No pleural effusion or pneumothorax. No acute osseous abnormality. Left-sided dual-chamber pacemaker. A pacing device overlies the left thorax, partially obscuring evaluation.
[2025-05-16] VITALS (16 sets, daily range): BP systolic 107–132; BP diastolic 68–86; PULSE 60–64; RESP 11–17; TEMP 97.1–98.1; O2SAT 96–99
[2025-05-16] MEDS: midazolam 1 mg/ML 2ml injection IV ONE (00:49)
[2025-05-16] MEDS ORDERED: magnesium sulf-water 2g/50mL 50 ML IV PRN (01:15)
[2025-05-16] MEDS ORDERED: ondansetron/PF 4mg/2ml inj IV PRN (01:15)
[2025-05-16] MEDS ORDERED: potassium Cl 20 mEq SR tablet PO PRN ×2 (01:15)
[2025-05-16] MEDS ORDERED: mag hydrox/Alum hydrox/simeth 30ml oral suspension PO PRN (01:15)
[2025-05-16] MEDS ORDERED: magnesium hydroxide 30ml (MOM) UD suspension PO PRN (01:15)
[2025-05-16] MEDS ORDERED: magnesium sulf-water 4G/100mL 100 ML IV PRN (01:15)
[2025-05-16] MEDS ORDERED: potassium Cl 40MEQ/1/2NS 520ml 520 ML IV PRN (01:15)
[2025-05-16] MEDS ORDERED: magnesium Cl slow-release 64mg tablet PO PRN (01:15)
[2025-05-16] MEDS ORDERED: ATOR-2 PO (01:29)
[2025-05-16] MEDS ORDERED: TICA90TA2 PO (01:30)
[2025-05-16] MEDS ORDERED: PANT40TA54 PO (01:31)
--- NOTE | 2025-05-16 01:45 | HISTORY AND PHYSICAL-Residence ---
History & Physical Providers to CC Resident Creating Document: JAYDEN TARIQ, RES ~ History of Present Illness Primary Medical Doctor: Dr. Ball Reason for Admit\Complaint: Lightheadedness History of Present Illness 69-year-old male patient presented to the hospital with chief complaint of lightheadedness. The patient states that approximately 9:30 p.m. while he was sitting and watching TV and resting he suddenly started having lightheadedness with the sensation that he was going to pass out. Associated to this symptom he endorses palpitations and sweating. The patient states that this is the 1st time that he experienced symptoms like this. The patient denied any chest pain, shortness of breath, losing consciousness. Upon arrival to the emergency department the patient was found with wide complex tachycardia and became hemodynamically unstable reason for which the patient received cardioversion. After the procedure the patient states that he is feeling better, lightheadedness and palpitations improved. Allergies: Coded Allergies: No Known Allergies (Unverified , 07/24/24) Home Medications Home Medications Active Restoril (Temazepam) 15 Mg Capsule 15 Mg PO HS PRN Magnesium (Magnesium Oxide) 500 Mg Capsule 500 Mg PO DAILY Pantoprazole Sodium 40 Mg Tablet. 40 Mg PO BKF Eliquis (Apixaban) 5 Mg Tablet 5 Mg PO BID Reported Brilinta (Ticagrelor) 90 Mg Tablet 1 Tab PO BID Atorvastatin Calcium 80 Mg Tablet 1 Tab PO HS Past Medical History Past Medical History Prostate cancer in 2006 s/p radiation. CAD s/p coronary stent. PAF. Cardiac arrest secondary to STEMI in July 2024. Torsades de pointes in July 2024. Past Surgical History Surgical History Comment Right knee orthopedic surgery. Lumbar spine surgery in the 85. CAD s/p coronary stent involving RCA/RPL. S/p pacemaker. 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) ROS Constitutional: Reports: see HPI Eyes: Denies: pain, discharge, blurred vision, double vision, itching, photophobia, redness, tearing, other ENT: Denies: ear pain, ear bleeding, ear discharge, hearing loss, ear ringing, nose pain, nose bleeding, nose congestion, nose discharge, throat pain, throat swelling, voice change, mouth pain, mouth bleeding, mouth swelling, other Respiratory: Denies: cough, orthopnea, shortness of breath, SOB with exertion, SOB at rest, stridor, wheezing, hemoptysis, pain with breathing, other Cardiovascular: Reports: see HPI Gastrointestinal: Denies: abdomen distended, abdominal pain, nausea, vomiting, diarrhea, constipated, melena, hematemesis, hematochezia, rectal bleeding, rectal pain, dysphagia, poor appetite, poor fluid intake, other Genitourinary: Denies: burning, discharge, dysuria, frequency, flank pain, hematuria, incontinence, pain, decreased urine output, urgency, other Male Genitalia: Denies: penile discharge, penile sore, testicular pain, testicular swelling, other Neurological: Denies: speech problem, headache, dizziness, fainting, tingling, left sided numbness, right sided numbness, left sided weakness, right sided weakness, problems walking, unable to move lower ext, unable to move upper ext, petit mal seizures, tonic-clonic seizures, cognitive dysfunction, other Musculoskeletal: Denies: pain, swelling, back pain, gout, joint pain, joint swelling, muscle pain, muscle swelling, muscle stiffness, neck pain, other Integumentary: Denies: rash, itching, lesions, lumps, bruise(s), wound(s), laceration(s), dryness, change in color, other Allergic/Immunologic: Denies: hives, itching, frequent infections, difficulty healing, other Hematologic/Lymphatic: Denies: anemia, blood clots, easy bleeding, easy bruising, swollen glands, other Endocrine: Denies: excessive sweating, flushing, intolerance to cold, intolerance to heat, increased hunger, increased thrist, increased urine, unexplained weight gain, unexplained weight loss, other Psychiatric: Denies: depression, anxiety, sleeplessness, hopeless, suicidal, hallucinations, other Exam Vitals: Vital Signs Date Time Temp Pulse Resp B/P (MAP) Pulse Ox O2 Delivery O2 Flow Rate FiO2 05/16/25 00:49 11 05/16/25 00:48 60 111/74 (86) 98 Nasal Cannula 2.0 Physical exam: General: Awake, alert, oriented. No acute distress. Well-developed, hydrated and well-built nourished. No anemia, Jaundice or clubbing. HEENT: Conjunctive are pink, sclerae clear, no icterus, pupil is equal in both sides, reactive to light, no ear discharge, no pharyngeal erythema or an edema. Neck: Supple, no adenopathy, thyromegaly. Trachea is midline. No JVD. Chest: Presence of pacemaker in the left upper side of the chest. Respiratory: Vesicular breath sounds. No ronchi, crepitus or wheezing. Resonance is normal upon percussion of all lung urena. Cardiovascular: S1-S2 regular sinus rhythm and, regular rate, no gallops, no rubs, no murmurs Abdomen: No visible distention, Bowel sounds present on auscultation, on palpation: soft, nontender, no guarding, no rigidity. Extremities: No obvious deformities, no pitting edema bilaterally, capillary refill intact, peripheral pulsations are intact on both sides Neurologic: Mental status: alert and conscious, oriented to place, person and time, preserved memory, normal speech. Cranial nerves I-XII: Normal. Motor system: Preserved power, coordination, no evidenced involuntary movements, strength 5/5 in four extremities. Sensory system: Preserved temperature, pain and vibration sensation. 2+ deep tendon reflexes in biceps, triceps, quadriceps. Negative Babinski. Cerebellar: No nystagmus, dysdiadochokinesia, normal [id number] testing. Skin: Warm and dry. Diagnostic Data Last Recorded Lab Results: 05/15/25 2314 05/15/25 2311 Advance Care Planning Advanced Care plannin - 30 Minutes (I spent a total of 17 minutes on reviewing various resuscitative measures/ACP with the patient at the time of admission. The patient has decided on a full code status.) Additional Plan Assessment and plan: 69-year-old male patient presented to the hospital with chief complaint of lightheadedness. Lightheadedness: Monomorphic ventricular tachycardia s/p cardioversion on 05/16: NSTEMI versus type 2 [place]: The patient presented to the hospital with chief complaint of lightheadedness. While the patient was in the emergency department he was found with hemodynamically instability with hypotension. Immediate cardioversion was performed in the ER, successfully controlled in the heart rate of the patient after the procedure. Initial EKG showing wide QRS complex tachycardia. EKG post cardioversion: V1-V3 st depression, paced rythm. HR: 60. Troponin levels noticed trending up, Not heparinized considering that the patient was on Eliquis and Brilinta. Plan: Follow-up TSH. Follow-up echocardiogram. The patient will be admitted to CICU for close monitoring. Cardiology consult in a.m. Metoprolol tartrate 25 mg b.i.d. Continue Brilinta 90 mg b.i.d. Atorvastatin 80 mg daily. Acute kidney injury likely prerenal: Acute renal tubular stasis, creatinine levels 1.17, GFR 61, BUN/creatinine ratio 17.9. Plan: Follow-up urine lytes. NS at 100 mL/hour. H/O CAD s/p RCA H/RPL stent x 3, OM1 stent: Resistance to Plavix: H/O PAF: The patient had STEMI on 07/24/2024 involving RCA/RPL. The patient received three stents at that time, during PCI the patient also was found with nonacute CAD 70% diagonal, JOINT CREASER OM1 (too small to stent). The patient had torsades de Pointes on 08/03/2024. Repeat catheterization was done with the open stents evidenced. Given to the resistance to clopidogrel the patient was started on Brilinta 90 mg b.i.d. for one year, and Eliquis 5 mg b.i.d. Plan: On Brilinta 90 mg b.i.d. and Eliquis 5 mg b.i.d. Code status: Full code DVT prophylaxis: On Eliquis Analgesia/sedation: None Line/tube: PIV GI prophylaxis: Protonix Nutrition: Heart healthy diet PT: Yes Prognosis: Guarded Disposition: The patient will be admitted to CICU for close monitoring Jayden Fofana Internal Medicine Resident [facility] Addendum I personally reviewed the chart, labs and imaging and reviewed the patient with the team. I agree with the assessment and plan as documented by the resident. Patient was seen through remote audio-visual assessment through HIPAA compliance setup. Date of Service: May 16, 2025 Billing Provider: JAEMS MÁRQUEZ MD, FRANCO LUIS, RUST May 16, 2025 01:45 JAMES MÁRQUEZ MD May 16, 2025 03:54
[2025-05-16] MEDS: normal saline 1000ML IV soln IVB ONE (02:23)
[2025-05-16 02:42] LABS: OSMOLALITY 300.0 MOSM/K (280-300)
[2025-05-16] MEDS: potassium Cl 20 mEq SR tablet PO STA (03:31)
[2025-05-16] MEDS: normal saline 1000ml 1,000 ML IV SCH (03:32)
[2025-05-16] MEDS: magnesium sulf-water 2g/50mL 50 ML IV ONE (03:48)
[2025-05-16 06:19] LABS: MEAN PLATELET VOLUME 8.1 FL (7.4-10.4); RED CELL DISTRIBUTION WIDTH 13.8 % (11.5-14.5)
[2025-05-16 06:36] LABS: CHOL/HDL RATIO 1.8 (0.00-4.99); CREATININE 1.03 MG/DL (0.60-1.10); LDL CHOLESTEROL 33 MG/DL (50-100); TOTAL CARBON DIOXIDE 24.8 MMOL/L (24-32); eCRCL 72 ML/MIN; eGFR 71 ML/MIN
--- NOTE | 2025-05-16 07:15 | ELECTROCARDIOGRAPH REPORT ---
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 Aston Asif Measurements Intervals [place] Rate: 183 P: 24 WI: 96 QRS: 193 QRSD: 165 T: -5 QT: 308 QTc: 538 Interpretive Statements Extreme tachycardia with wide complex, no further rhythm analysis attempted Electronically Signed On 05-16-2025 21:12:[address] Aston Asif Please click the below link to view image of tracing.
[2025-05-16] MEDS: pantoprazole 40mg Tablet.DR PO SCH (07:39)
[2025-05-16] MEDS ORDERED: sod chloride 0.9% 10ml flush syringe IV ONE (08:00)
[2025-05-16] MEDS ORDERED: adenosine 3mg/ml 2ml vial IV ONE (08:00)
[2025-05-16] MEDS: K and/or MAG REPLACEMENT MC SCH (08:00)
[2025-05-16] MEDS ORDERED: HYDR-3964 PO (08:14)
[2025-05-16] MEDS ORDERED: CYCL-1 PO (08:14)
[2025-05-16] MEDS ORDERED: ATOR10TA70 PO (08:14)
[2025-05-16] MEDS ORDERED: PANT-47 PO (08:14)
[2025-05-16] MEDS ORDERED: APIX5TAB3 PO (08:14)
[2025-05-16] MEDS ORDERED: SACU1TAB PO (08:14)
[2025-05-16 08:29] LABS: PHOSPHORUS 2.9 MG/DL (2.3-4.5)
--- NOTE | 2025-05-16 10:11 | ELECTROCARDIOGRAPH REPORT ---
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 Aston Asif Measurements Intervals [place] Rate: 64 P: 112 DC: 179 QRS: 53 QRSD: 108 T: 214 QT: 390 QTc: 403 Interpretive Statements Atrial-paced complexes Inferoposterior infarct, recent Abnrm T, consider ischemia, anterolateral lds Electronically Signed On 05-16-2025 21:12:[address] Aston Asif Please click the below link to view image of tracing.
--- NOTE | 2025-05-16 11:58 | PROGRESS NOTE- Residence ---
Progress Note - Resident Providers to CC Resident Creating Document: AIDE CAI RES ~ Antibiotic Timeout Antibiotic Ordered?: No Subjective The patient endorsed that he is free from any chest pain before near syncope and during hospitalization this AM as well. He reported that he has been having the lightheadness after he started Entersto by Dr Dex Ball on Feb 21, 2025 for his HFrEF 40%. He endorsed that he had a severe lightheadness and head goode while he was sitting comfortably and watching TV last night, although he denied for losing consciousness, any focal or generalized seizure like activity, loss of bowel and bladder control functions, tongue bitting, and any autonomic dysfunction symptoms etc. He denied for any previous Hx of PE and DVT, recent long distance travel and recent malignancy and its treatment. He also endorsed that he underwent the ablation for Afib and watchman for his HFrEF. He is currently on chronic norco for his chronic chest wall fracture from the last time CPR for his cardiopulmonary arrest after he found to have a stent thrombosis from his plavix resistance, which was switched to Brilinta and Eliquis now. On last night ER, he did not loss his conscious when he got the Monomorphic VT although he was hemodynamically unstable for which he received the one time Cardioversion, found to have uptrending Trops which he stated that way more lesser than he used to have. Objective Vital Signs Date Time Temp Pulse Resp B/P (MAP) Pulse Ox O2 Delivery O2 Flow Rate FiO2 05/16/25 11:00 97.6 60 15 132/76 (94) 99 Room Air 05/16/25 02:14 2.0 Result Diagram: 05/16/2521 05/16/25 0518 Vitals were stable at the moment with temp 98.2 F, AL 60/minute, RR 70/minute, BP 124/76 mm Hg, pulse oximetry 97% on room air. On examination, General: Well alert, well oriented, not confused, not agitated, not in acute distress, well cooperated during the physical. HEENT: Conjunctive are pink, sclerae clear, no icterus, pupil is equal in both sides, reactive to light, no ear discharge, no pharyngeal erythema or an edema, mouth and lips are moist. Neck: Supple, no JVD, no lymphadenopathy and thyromegaly. Lungs: Equal air entry on both lungs, no additional sounds Heart: S1-S2 regular sinus rhythm and, regular rate, no gallops, no rubs, no murmurs Abdomen: No visible peristalsis, Bowel sounds present on auscultation, soft, nontender, no guarding, no rigidity Extremities: No obvious deformities, no pitting edema bilaterally, capillary refill intact, able to wiggle toes both sides, peripheral pulsations are intact on both sides PROJECT ENG: No focal neurological deficits, no motor and sensory weakness in all 4 extremities, could move all 4 extremities Musculoskeletal: No joint swelling, deformities, inflammations, and no scoliosis and back tenderness Skin: No active skin lesions and rashes Advance Care Planning Advanced Care plannin - 30 Minutes Assessment Assessment A 69 years old male presented with near syncope found to have hemodynamically unstable Monomorphic VTach for which he underwent one time cardioversion with uptrending serial troponin levels with PMH of CAD s/p coronary stent RCA/RPL with Plavix resistance on Brilinta, C-P arrest from STEMI and Polymorph VT/Torsades in 2024, PAfib w/ CVR on Eliquis s/p Ablation, HFrEF 40% s/p watchman placement, s/p left dual chamber PPM, s/p Rt knee surgery, lumbar spine surgery. He was placed in CICU last night for cardiac monitoring, and subsequently downgraded to the PCU floor to continue management after he was stablized in CICU this morning. Plan Plan CardioVascular: # Near Syncope 2/2 # Hemodynamically unstable Monomorphic Ventricular Tachycardia # s/p Left dual chambers PPM # Possible Type 2 MN from post cardioversion # PAfib w/ CVR on Eliquis # S/p Atrial Ablation # CAD s/p Coronary stent RCA/RPL with Plavix resistance, 10 years ASCVD risk: 14% # Hx of cardiopulmonary arrest and polymorphic VTach/ Torsades from STEMI in July 2024 # HFrEF 40% on GDMT -underwent one time cardioversion in ER last night for Hemodynamically unstable Monomorphic Ventricular Tachycardia -Found to have uptrending serial Trops which could possibly from the Cardioversion -Pending 2D TTE -Dr Ball was informed, and continue medical management for uptrending Serial trops w/o having any active Chest pain and no new EKG ST T changes, and continue Brilinta and Eliquis -Cardiology advise to initiate PO Amiodarone 200 mg QD for VT -replace K+ and Mg2+ to maintain above 4 and 2 as per protocol -Currently holding the Entersto for his soft BP, to re eval Entresto to restart it -Cardiovascular risk modification Nephrology: # Possible KARY likely from Pre renal/ renal tubular stasis # CKD stage 2 -His baseline Cr was around 0.8 last 9 months ago -Pending urine lytes to calculate KARY Dx and FeNa -Monitor rate of eGFR declining -Strict I's and O's Endocrine: # Hyperglycemia # Hypercholesterolaemi # Overweight BMI 28.7 -Pending HbA1C -Monitor the Blood sugar and goal range should be between 140s-180s during hospitalization -Continue Atovastatin 80 from home meds Hepatology: # Nonspecific mild Transaminitis -WNL TBili -reviewed and reconciled home meds with Hepatotoxic meds -Recommend outpatient USG abd and GGT also for elevated AlkPo4 CODE STATUS: Full code DVT prophylaxis: Eliquis Analgesia/sedation: P.o. Franklin as needed Lines/tubes: PIV GI prophylaxis: Protonix Nutrition: Heart healthy Prognosis: Guarded Dispo: Critical care time 35 minutes. Downgraded to PCU floor to continue the patient care by Hospitalist team. You are welcome to inquire questions related to the patient's intensive care. Resident MD attestation: Patient was seen, examined and discussed with attending MD, Dr. Gus CAI MD Internal Medicine Resident, PGY3 [facility] Date of Service: May 16, 2025 Billing Provider: KAYLEE VELASQUEZ MD, TIN, RES May 16, 2025 11:57
--- NOTE | 2025-05-16 15:16 | PROGRESS NOTE- Residence ---
Progress Note - Resident Providers to CC Resident Creating Document: JOHNSON CURIEL, RES ~ Antibiotic Timeout Antibiotic Ordered?: No Subjective Patient was transfered from ICU today, he was seen and examined on bedside, reports yesterday while he was sitting, he had palpations was feeling lightheaded and then his girlfriend call ambulance.He denies nausea, vomitting,chest pain or shrotness of breath at that time. He also reports he had ablation and watchman procedure in february 2025 in [facility] with Dr Mcgee at [facility].In addition to that he also report he is resistant to plavix.. Apart from that he also report he 3 times in july and chest compression was done.He reports 2 times CPR was done and one cardioversion was done. Currently he reports he has no chest pain, no shortness of breath, no nausea and vomitting. Objective Vital Signs Date Time Temp Pulse Resp B/P (MAP) Pulse Ox O2 Delivery O2 Flow Rate FiO2 05/16/25 11:00 97.6 60 15 132/76 (94) 99 Room Air 05/16/25 02:14 2.0 Result Diagram: 05/16/2521 05/16/25 0518 General: Awake, alert, oriented. No acute distress. Well-developed, hydrated and well-built nourished. No anemia, Jaundice or clubbing. HEENT: Conjunctive are pink, sclerae clear, no icterus, pupil is equal in both sides, reactive to light, no ear discharge, no pharyngeal erythema or an edema. Neck: Supple, no adenopathy, thyromegaly. Trachea is midline. No JVD. Chest: Presence of pacemaker in the left upper side of the chest. Respiratory: Vesicular breath sounds. No ronchi, crepitus or wheezing. Resonance is normal upon percussion of all lung urena. Cardiovascular: S1-S2 regular sinus rhythm and, regular rate, no gallops, no rubs, no murmurs Abdomen: No visible distention, Bowel sounds present on auscultation, on palpation: soft, nontender, no guarding, no rigidity. Extremities: No obvious deformities, no pitting edema bilaterally, capillary refill intact, peripheral pulsations are intact on both sides Neurologic: Mental status: alert on and time, preserved memory, normal speech. Cranial nerves I-XII: Normal. and conscious, oriented to place, pers Motor system: Preserved power, coordination, no evidenced involuntary movements, strength 5/5 in four extremities. Sensory system: Preserved temperature, pain and vibration sensation. 2+ deep tendon reflexes in biceps, triceps, quadriceps. Negative Babinski. Cerebellar: No nystagmus, dysdiadochokinesia, normal [id number] testing. Skin: Warm and dry Advance Care Planning Advanced Care plannin - 30 Minutes Plan Plan WIDE QRS Complex Tachycardia Cardiogenic Shock Troponemia likely secondary to cardioversion The patient presented to the hospital with chief complaint of lightheadedness. While the patient was in the emergency department he was found with hemodynamically instability with hypotension. Immediate cardioversion was performed in the ER, successfully controlled in the heart rate of the patient after the procedure. Initial EKG showing wide QRS complex tachycardia. EKG post cardioversion: V1-V3 st depression, paced rythm. HR: 60. Troponin levels noticed trending up,trops x 30,703, 1987,4360,5899 Plan: TSH NORMAL LV is moderately dilated with normal wall thickness. Overall systolic function appears moderately reduced. Multi segmental wall motion abnormalities noted. LVEF is 40%. RVSP is estimated at 38 mmHG. As per Cardiology -Change metop to XL 50mg QD--Cont Amio 200mg QD for now--Cont Brilinta, Eliquis Hydraulic Blocker Dr Ball is on board. Acute kidney injury likely prerenal Resolved Creatinine 1.17, currently creatinine 1.03 BUN/CR 18.4 H/O CAD s/p RCA H/RPL stent x 3, OM1 stent: Resistance to Plavix: The patient had STEMI on 07/24/2024 involving RCA/RPL. The patient received three stents at that time, during PCI the patient also was found with nonacute CAD 70% diagonal, SEWER HAND OM1 (too small to stent). The patient had torsades de Pointes on 08/03/2024. Repeat catheterization was done with the open stents evidenced. Given to the resistance to clopidogrel the patient was started on Brilinta 90 mg b.i.d. for one year, and Eliquis 5 mg b.i.d. Plan: On Brilinta 90 mg b.i.d. and Eliquis 5 mg b.i.d. Atrial Fibrillation S/P Watchman Procedure s/pAblation It was performed in February [address] Mcgee in [facility]. Tele shows sinus paced rhythm. Code Status : Full Code Dvt prophylaxis: Elliquis GI Prophylaxis: Pantoprazole 40 mg PO Disposition: Possible discharge tomorrow, patient currently have no chest pain.Patient has been downgraded to PCU. Johnson Curiel PGY 1 IM Date of Service: May 16, 2025 Billing Provider: BABS DUCKWORTH MD, SANJAY, RES May 16, 2025 15:16
--- NOTE | 2025-05-16 15:49 | CONSULTATION REPORT ---
Cardiac Consultation Report Providers to CC CC: ZHEN TERRELL MD ~ Progress Note: 69yo man with HTN, HLD, CAD(s/p PCI RCA), HFmrEF, Afib admitted for VT. Pt states he was feeling dizzy/LH, head goode, palpitations. Here, found to be in VT s/p synchronized cardioversion. Since, reports symptoms resolved. Subjective Subjective Denies any CP. states palpitations/dizziness resolved Objective Vitals Vital Signs Date Time Temp Pulse Resp B/P (MAP) Pulse Ox O2 Delivery O2 Flow Rate FiO2 05/16/25 11:00 97.6 60 15 132/76 (94) 99 Room Air 05/16/25 02:14 2.0 Lab Results: 05/16/25 0521 05/16/25 0518 Objective GENERAL:Awake, alert, NAD CV: reg rhythm, normal rate. No murmurs LUNGS: CTAB GI: +BS, soft, non-tender. EXT: 2+ radial pulses, no edema PSYCH: cooperative Problem\Assessment\Plan Problems/Diagnosis: (1) Wide-complex tachycardia Assessment & Plan: Appears to be VT on EKG. Has prior h/o CAD s/p PCI 2024, repeat LHC later with patent stents after possible Torsade's. He did have Afib ablation with [facility] 02/2025. TTE with mr-EF. Elevated trop after cardioversion. --Change metop to XL 50mg QD --Cont Amio 200mg QD for now --Cont Brilinta, Eliquis as he reports ablation 02/2025 with watchman, however, residual leak BE TERRELL MD May 16, 2025 15:49
[2025-05-16] MEDS: HYDROcodone/acetaminophen 5mg/325mg tablet PO PRN (17:24)
--- NOTE | 2025-05-16 17:40 | CARDIOLOGY REPORT ---
APPROVED REPORT EXAM: Comprehensive 2D, Doppler, and color-flow Echocardiogram. Patient Location: 301 Blood Pressure: 112/68 mmHg Heart Rate: 60 bpm Rhythm: PACED Indications CAD Pacemaker Watchman 02/2025 Stent x 3 in 07/2024 Lead Mechanic is Betty Ball MD Previous echo 08/09/24 [facility] 40% EF ; mod MR ; RVSP 39 2D Dimensions LA Diam 4.6 cm IVSd 1.0 (0.7-1.1cm) LVDd 6.9 cm PWd 1.1 (0.7-1.1cm) IVSs 1.4 (0.8-1.2cm) LVDs 5.7 (2.5-4.0cm) Aortic Root(2D) 3.4 cm PWs 1.5 (0.8-1.2cm) LVOT Diameter 2.33 (1.8-2.4cm) LVEF(%) 37.0 (>50%) Ao Asc Diam. 3.83 cm IVC 18.00 mm FS (%) 18.4 % SV 92.3 ml CO 5.6 L/min M-Mode Dimensions MV EPSS 2.6 (<0.5cm) Aortic Valve AoV Peak Kraig. 134.6 cm/s AoV VTI 27.4 cm AO Peak GR. 7.2 mmHg AO Mean GR. 4 mmHg LVOT VTI 20.14 cm LVOT Peak Kraig. 107.0 cm/s RUTH(VTI)/BSA 3.15 cm2/m2 RUTH (VTI) 3.15 cm2 AV DI 0.74 % Mitral Valve MV E Velocity 57.0 cm/s MV DECEL TIME 196 ms MR VMax 511.0 cm/s MR PG Max 104.4 mmHg TDI Medial E' P. V 8.87 cm/s E/Medial E' 6.4 Tricuspid Valve TR P. Velocity 264 cm/s RAP ESTIMATE 10 mmHg TR Peak Gr. 28 mmHg RVSP 38 mmHg Pulmonary Vein S1 Velocity 23.0 cm/s D2 Velocity 60.5 cm/s PVa Velocity 21.2 cm/s PVa Duration 60 msec LEFT VENTRICLE LV is moderately dilated with normal wall thickness. Overall systolic function appears moderately reduced. Multi segmental wall motion abnormalities noted. LVEF is 40%. RIGHT VENTRICLE RV appears moderately dilated with normal contractility. RVSP is estimated at 38 mmHG. ATRIA Left atrium is moderately dilated. AORTIC VALVE Trileaflet AV appears sclerotic without stenosis. Trace insufficiency by color and spectral flow Doppler. MITRAL VALVE Mild MV annular calcification without stenosis. Moderate severe regurgitation by color and spectral flow Doppler. TRICUSPID VALVE TV appears structurally normal with trace regurgitation by color and spectral flow Doppler. PULMONIC VALVE Normal PV without stenosis, physiologic, insufficiency by color and spectral flow Doppler. GREAT VESSELS The aortic root is normal in size. The ascending aorta is measured at 3.8 cm. The IVC is normal in size and collapses >50% with inspiration. PERICARDIUM There is no pericardial effusion. Conclusion LV is moderately dilated with normal wall thickness. Overall systolic function appears moderately reduced. Multi segmental wall motion abnormalities noted. LVEF is 40%. RV appears moderately dilated with normal contractility. RVSP is estimated at 38 mmHG. Left atrium is moderately dilated. Trileaflet AV appears sclerotic without stenosis. Trace insufficiency by color and spectral flow Doppler. Mild MV annular calcification without stenosis. Moderate severe regurgitation by color and spectral flow Doppler. TV appears structurally normal with trace regurgitation by color and spectral flow Doppler. The aortic root is normal in size. The ascending aorta is measured at 3.8 cm. There is no pericardial effusion.
[2025-05-17 02:00] VITALS: BP 126/87; PULSE 63; RESP 12; TEMP 97.1; O2SAT 96
[2025-05-17 05:55] LABS: MEAN PLATELET VOLUME 8.1 FL (7.4-10.4); RED CELL DISTRIBUTION WIDTH 13.9 % (11.5-14.5)
[2025-05-17 06:00] VITALS: BP 126/80; PULSE 60; RESP 18; TEMP 97.8; O2SAT 98
[2025-05-17 06:08] LABS: CREATININE 0.91 MG/DL (0.60-1.10); TOTAL CARBON DIOXIDE 26.0 MMOL/L (24-32); eCRCL 79 ML/MIN; eGFR 82 ML/MIN
[2025-05-17] MEDS ORDERED: pantoprazole 40mg Tablet.DR PO SCH (07:30)
[2025-05-17 08:00] VITALS: RESP 15; O2SAT 97
[2025-05-17] MEDS: metoprolol succinate 25mg (24-HOUR) SR. Tablet PO SCH (09:31)
[2025-05-17 11:00] VITALS: BP 122/77; PULSE 68; RESP 14; TEMP 97.9; O2SAT 98
[2025-05-17] MEDS ORDERED: metoprolol succinate 25mg (24-HOUR) SR. Tablet PO ONE (12:02)
[2025-05-17] MEDS ORDERED: AMIO200T73 PO (12:09)
[2025-05-17] MEDS ORDERED: METO-395 PO (12:09)
[2025-05-17] MEDS ORDERED: ATOR20TA66 PO (12:09)
--- NOTE | 2025-05-17 14:06 | DISCHARGE SUMMARY-Residence ---
Discharge Summary Providers to CC Resident Creating Document: MILLICENT NARAYAN RES ~ Discharge Summary Admission Diagnosis: SVT Hospital Course DATE OF ADMISSION: 05/15/25 DATE OF DISCHARGE: 05/17/25 Hospital course: 69-year-old male patient presented to the hospital with chief complaint of lightheadedness. On admission The patient states that approximately 9:30 p.m. while he was sitting and watching TV and resting he suddenly started having lightheadedness with the sensation that he was going to pass out. Associated to this symptom he endorses palpitations and sweating. The patient states that this is the 1st time that he experienced symptoms like this. The patient denied any chest pain, shortness of breath, losing consciousness. Upon arrival to the emergency department the patient was found with wide complex tachycardia and became hemodynamically unstable reason for which the patient received cardioversion. After the procedure the patient states that he is feeling better, lightheadedness and palpitations improved. Patient admitted with following workup and treatment WIDE QRS Complex Tachycardia Cardiogenic Shock Troponemia likely secondary to cardioversion The patient presented to the hospital with chief complaint of lightheadedness. While the patient was in the emergency department he was found with hemodynamically instability with hypotension. Immediate cardioversion was p erformed in the ER, successfully controlled in the heart rate of the patient after the procedure. Initial EKG showing wide QRS complex tachycardia. EKG post cardioversion: V1-V3 st depression, paced rythm. HR: 60. Troponin levels noticed trending up,trops x 30,703, 1987,4360,5899 Echo: LV is moderately dilated with normal wall thickness. Overall systolic fun ction appears moderately reduced. Multi segmental wall motion abnormalities noted. LVEF is 40%. RVSP is estimated at 38 mmHG. As per Cardiology -Change metop to XL 50mg QD--Cont Amio 200mg QD for now--Cont Giovanni Martin Records Tech Dr Ball is on board. Acute kidney injury likely prerenal Resolved Creatinine 1.17, currently creatinine 1.03 BUN/CR 18.4 H/O CAD s/p RCA H/RPL stent x 3, OM1 stent: Resistance to Plavix: The patient had STEMI on 07/24/2024 involving RCA/RPL. The patient received three stents at that time, during PCI the patient also was found with nonacute CAD 70% diagonal, GENERAL OFFICE ASSOCIATE OM1 (too small to stent). The patient had torsades de Pointes on 08/03/2024. Repeat catheterization was done with the open stents evidenced. Given to the resistance to clopidogrel the patient was started on Brilinta 90 mg b.i.d. for one year, and Eliquis 5 mg b.i.d. Records Tech Dr Dex Ball was consulted who recommended started metoprolol 50 XL and amiodarone 200 daily and continue Brilinta Eliquis Atrial Fibrillation S/P Watchman Procedure however, residual leak It was performed in February [address] Mcgee in [facility]. Labs troponin trending down and patient was stable initially patient admitted in ICU for close monitoring and downgrade to the PCU. Laboratory Tests Test 05/15/25 23:11 05/15/25 23:14 05/16/25 01:11 05/16/25 02:24 Sodium Level 144 MMOL/L Potassium Level 3.6 MMOL/L Chloride Level 106 MMOL/L Carbon Dioxide Level 29.1 MMOL/L Anion Gap 9 Blood Urea Nitrogen 21 MG/DL Creatinine 1.17 MG/DL Estimated GFR/1.73 m2 61 ML/MIN BUN/Creatinine Ratio 17.9 Glucose Level 115 MG/DL Calcium Level 9.6 MG/DL Troponin I High Sensitivity 30 ng/L 703 ng/L 1987 ng/L Pro-B-Type Natriuretic Peptide 462 PG/ML Albumin 4.2 G/DL Chemistry Comments White Blood Count 10.3 X10'3 Red Blood Count 5.06 X10'6 Hemoglobin 14.6 g/dl Hematocrit 42.8 % Mean Corpuscular Volume 84.7 FL Mean Corpuscular Hemoglobin 28.9 PG Mean Corpuscular Hemoglobin Concent 34.1 g/dL Red Cell Distribution Width 13.9 % Platelet Count 226 X10'3 Mean Platelet Volume 7.8 FL Neutrophils (%) (Auto) 68.0 % Lymphocytes (%) (Auto) 22.2 % Monocytes (%) (Auto) 6.3 % Eosinophils (%) (Auto) 2.7 % Basophils (%) (Auto) 0.8 % Neutrophils # (Auto) 7.0 X10'3 Lymphocytes # (Auto) 2.3 X10'3 Monocytes # (Auto) 0.6 X10'3 Eosinophils # (Auto) 0.3 X10'3 Basophils # (Auto) 0.1 X10'3 CBC Comment Osmolality 300 MOSM/K Magnesium Level 1.9 MG/DL Troponin I High Sens Percent Delta 2243 % 182 % Troponin I Hi Sens Absolute Change 673 ng/L 1284 ng/L Thyroid Stimulating Hormone (TSH) 2.01 ulU/ml Test 05/16/25 05:18 05/16/25 05:21 05/16/25 13:32 05/17/25 04:53 Sodium Level 143 MMOL/L 143 MMOL/L Potassium Level 4.4 MMOL/L 4.3 MMOL/L Chloride Level 111 MMOL/L 111 MMOL/L Carbon Dioxide Level 24.8 MMOL/L 26.0 MMOL/L Anion Gap 7 6 Blood Urea Nitrogen 19 MG/DL 17 MG/DL Creatinine 1.03 MG/DL 0.91 MG/DL Estimated GFR/1.73 m2 71 ML/MIN 82 ML/MIN BUN/Creatinine Ratio 18.4 18.7 Glucose Level 125 MG/DL 97 MG/DL Calcium Level 8.7 MG/DL 8.3 MG/DL Phosphorus Level 2.9 MG/DL Magnesium Level 2.3 MG/DL 2.0 MG/DL Total Bilirubin 0.4 MG/DL 0.5 MG/DL Aspartate Amino Transf (AST/SGOT) 77 U/L 37 U/L Alanine Aminotransferase (ALT/SGPT) 82 U/L 51 U/L Alkaline Phosphatase 124 IU/L 93 IU/L Troponin I High Sensitivity 4360 ng/L 5899 ng/L Troponin I High Sens Percent Delta 119 % 35 % Troponin I Hi Sens Absolute Change 2373 ng/L 1539 ng/L Total Protein 6.4 G/DL 5.8 G/DL Albumin 3.4 G/DL 3.1 G/DL Globulin 3.0 G/DL 2.7 G/DL Albumin/Globulin Ratio 1.1 1.1 Triglycerides Level 45 MG/DL Cholesterol Level 95 MG/DL LDL Cholesterol 33 MG/DL HDL Cholesterol 52 MG/DL Cholesterol/HDL Ratio 1.8 Chemistry Comments White Blood Count 6.7 X10'3 6.1 X10'3 Red Blood Count 4.25 X10'6 4.12 X10'6 Hemoglobin 12.2 g/dl 11.8 g/dl Hematocrit 36.2 % 35.2 % Mean Corpuscular Volume 85.1 FL 85.5 FL Mean Corpuscular Hemoglobin 28.8 PG 28.8 PG Mean Corpuscular Hemoglobin Concent 33.8 g/dL 33.6 g/dL Red Cell Distribution Width 13.8 % 13.9 % Platelet Count 186 X10'3 153 X10'3 Mean Platelet Volume 8.1 FL 8.1 FL Neutrophils (%) (Auto) 80.1 % 69.8 % Lymphocytes (%) (Auto) 12.0 % 19.5 % Monocytes (%) (Auto) 7.0 % 5.9 % Eosinophils (%) (Auto) 0.3 % 3.8 % Basophils (%) (Auto) 0.6 % 1.0 % Neutrophils # (Auto) 5.3 X10'3 4.2 X10'3 Lymphocytes # (Auto) 0.8 X10'3 1.2 X10'3 Monocytes # (Auto) 0.5 X10'3 0.4 X10'3 Eosinophils # (Auto) 0.0 X10'3 0.2 X10'3 Basophils # (Auto) 0.0 X10'3 0.1 X10'3 CBC Comment Test 05/17/25 08:45 Troponin I High Sensitivity 1958 ng/L Troponin I High Sens Percent Delta 66 % Troponin I Hi Sens Absolute Change -3941 ng/L Physical exam on discharge day General: Awake and Alert, no acute distress. HEENT: Conjunctiva pink, Sclera clear, Mucus Membranes moist. Neck: Supple without masses and tenderness. Resp: Lungs clear to auscultation bilaterally. Heart: Regular Rate and rhythm, normal S1 and S2 Abdomen: Soft and non tender Extremities: No cyanosis,clubbing or edema. Skin: Warm and Dry. Neurological: Speech is clear, alert, and oriented x 4, no gross neurological de ficits Patient gets recovery sooner than expected, he insisted to go home, Dr. Douglas Ball was consulted who mentioned patient is medically stable and clear to go home Patient discharged home with following instruction stable situation Please follow-up with your PCP in one week. Keep yourself hydrated. Please follow-up with your Cardiology after discharged. Discharge Diagnosis\Comment: Cardiogenic shock Monomorphic ventricular tachycardia s/p cardioversion on 05/16 Elevated troponin possibly secondary to type 2 CT and possibly increased due to to cardioversion Acute kidney injury prerenal CAD s/p RCA H/RPL stent x 3, OM1 stent Operations\Procedures: Cardioversion in emergency room on admission Consultants: Dr Quinn Weber Complications: none Condition on DC: Stable New Medications: Amiodarone HCl (Amiodarone HCl) 200 Mg Tablet 1 TAB PO DAILY for 30 Days, #30 TAB 0 Refills Atorvastatin Calcium (Atorvastatin Calcium) 20 Mg Tablet 40 MG PO DAILY for 30 Days, #30 TAB Metoprolol Succinate (Metoprolol Succinate) 25 Mg Tab.sr.24h 50 MG PO DAILY, #30 TAB.SR 0 Refills Continued Medications: Apixaban (Eliquis) 5 Mg Tablet 1 TAB PO Q12H for 30 Days, #60 TAB 0 Refills Hydrocodone Bit/Acetaminophen (Hydrocodon-Acetaminophen 5-325) 5 Mg-325 Mg Tablet 1 TAB PO TID PRN for pain Pantoprazole Sodium (PROTONIX tablet) 40 Mg Tablet.dr 1 TAB PO DAILY for 30 Days, #30 TAB 0 Refills Sacubitril/Valsartan (Entresto 24 mg-26 mg Tablet) 24 Mg-26 Mg Tablet 1 TAB PO Q12H for 30 Days, #60 TAB 0 Refills Ticagrelor (Brilinta) 90 Mg Tablet 90 MG PO BID for ACUTE CORONARY SYNDROME/NSTEMI, #60 TAB 12 Refills Do not stop medication unless instructed by prescriber. Must be on aspirin as well. Discontinued Medications: Atorvastatin Calcium (Atorvastatin Calcium) 10 Mg Tablet 1 TAB PO DAILY Cyclobenzaprine* (Cyclobenzaprine*) 10 Mg Tablet 1 TAB PO QPM Discharge Summary: See hospital course *Problems/Diagnosis: (1) Wide-complex tachycardia Status: Acute Total Time Spent on D/C: > 30 Minutes Date of Service: May 17, 2025 Billing Provider: BABS DUCKWORTH MD,MILLICENT, RES May 17, 2025 13:34
== END 2025-05-17 14:30 | disposition home or self-care (01) | DRG 280 ==
LOC: ER 23:04 → ED HOLD 05-16 01:16 → PCU 3S 05-16 02:49 → CICU 2S 05-16 04:00 → PCU 3S 05-16 10:25
PROVIDERS: ADMIT Internal Medicine Sleep Medicine; ATTEND Family Medicine
PROC: 5A2204Z Restoration of Cardiac Rhythm, Single (ICD-10-PCS; principal; 2025-05-16)
DX: I47.20 Ventricular tachycardia, unspecified (principal); R57.0 Cardiogenic shock; I21.A1 Myocardial infarction type 2; N17.9 Acute kidney failure, unspecified; Z79.01 Long term (current) use of anticoagulants; E78.00 Pure hypercholesterolemia, unspecified; I25.10 Atherosclerotic heart disease of native coronary artery without angina pectoris; Z79.899 Other long term (current) drug therapy; Z85.46 Personal history of malignant neoplasm of prostate; I25.2 Old myocardial infarction; Z86.73 Personal history of transient ischemic attack (TIA), and cerebral infarction without residual deficits; N18.2 Chronic kidney disease, stage 2 (mild)
CPT/HCPCS: 36415; 71045; 80048; 80053; 80061; 83735; 83880; 83930; 84100; 84443; 84484; 85025; 87081; 93005; 93306; 94760; 99291; A6449; G0378; J0153; J2250; J3490; J7030